=== PATIENT | female | born 2000 | race Caucasian/White ===

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

== ENCOUNTER 2021-01-09 11:12 | Emergency (ER) | payer BC ==
[2021-01-09] MEDS ORDERED: methylPREDNISolone Sodium Succinate 125 MG/2 ML SDV IM ONE (12:39)
--- NOTE | 2021-01-09 12:50 | EDM.PDOC ---
ED HPI GENERAL MEDICAL PROBLEM - General Chief Complaint: Skin Complaint Stated Complaint: HIVES Time Seen by Provider: 01/09/21 12:21 Source of Information: Reports: Patient History Limitations: Reports: No Limitations - History of Present Illness INITIAL COMMENTS - FREE TEXT/NARRATIVE: HISTORY AND PHYSICAL: History of present illness: Patient is a 20-year-old female who presents to the emergency room with complaints of urticaria x2 weeks. She states a week ago she was seen at a walk- in clinic and was prescribed prednisone 20 mg once daily x5 days (completed), and famotidine and hydroxyzine. She states while she was on the prednisone it did help somewhat but rash has returned. She denies any new exposures, medications or contact with anything that would cause hives. Patient does have a history of Graves' disease, takes levothyroxine for several years. She states that she does have concern of her thyroid level being off and would like this rechecked today. She is also questioning whether the hives are related to a separate autoimmune disease. She states her control engineer is in [place], does plan to see them in the next few weeks. Patient denies any fever, chills, headache, change in vision, syncope or near syncope. Denies any chest pain, back pain, shortness of breath or cough. Denies any GI or symptoms. No recent travel or sick contacts. Review of systems: As per history of present illness and below otherwise all systems reviewed and negative. Past medical history: As per history of present illness and as reviewed below otherwise noncontr ibutory. Surgical history: As per history of present illness and as reviewed below otherwise noncontributory. Social history: See social history for further information Family history: As per history of present illness and as reviewed below otherwise noncontributory. Physical exam: General: Well developed and well nourished 20year old female. Alert and orientated x 3. Nontoxic in appearance and in no acute distress. Vital signs are stable and have been reviewed by me. Nursing notes were reviewed. HEENT: Atraumatic, normocephalic, pupils equal and reactive bilaterally, negative for conjunctival pallor or scleral icterus, mucous membranes moist, TMs normal bilaterally, throat clear, neck supple, nontender, trachea midline. No drooling or trismus noted. No meningeal signs. No hot potato voice noted. Lungs: Clear to auscultation bilaterally. No wheezes, rales, or rhonchi. Chest nontender. Normal work of breathing, no accessory muscles used. Heart: S1S2, regular rate and rhythm without overt murmur, gallops, or rubs. No JVD. No peripheral edema Abdomen: Soft, nondistended, nontender. Normoactive bowel sounds. Negative for masses or costovertebral tenderness. Skin: Raised urticaria throughout; spares the face. Skin is intact, warm, dry. No lesions noted. Hematologic: No petechiae or purpra. Mucosa appropriate color and normal nail bed color and refill. Extremities: Atraumatic, moves all extremities per self without difficulty or deficits, negative for cords or calf pain. Neurovascular unremarkable. Neuro: Awake, alert, oriented. Cranial nerves II through XII unremarkable. Cerebellum unremarkable. Motor and sensory unremarkable throughout. Exam nonfocal. Psychiatric: Mood and affect are appropriate. Normal thought process. Answering questions appropriately. Please note that the patient was seen and evaluated during the 2019 SARS-CoV-2 novel coronavirus pandemic period. Community viral transmission is ongoing at time of this encounter and the emergency department is operating under pandemic response procedures. Medical Decision Making: Patient is a 20-year-old female who presents to the emergency room with complaints of your urticaria/hives for 2 weeks. She did have a short course of prednisone and states that did help while she was on it but as soon as she came off of it her rash returned. She voices concern of autoimmune disorder as she has history of Graves' disease. I did educate her that we cannot do formal testing for that due to our limited availability of follow-up and tests. Patient is aware and understanding, does request her thyroid to be checked. Lab work is unremarkable. Her vital signs are stable. I have talked with the patient about today's findings, in addition to providing specific details for plan of care. Reassessment at the time of disposition demonstrates that the patient is in no acute distress. I did give her our dermatology phone number. The patient is stable for discharge, counseling was provided and we discussed in great detail signs and symptoms that would prompt them to return to the Emergency Department. Medication, follow up and supportive care measures were reviewed and discussed. Voices understanding and is agreeable to plan of care. Denies any further questions or concerns at this time. Diagnostics: CBC, CMP, ESR, TSH, T3, T4 Therapeutics: Solu-Medrol Prescription: Prednisone Impression: Urticaria Plan: 1. You were evaluated today on an emergent basis. Your basic lab work which includes a CBC, CMP, ESR, TSH, T3 and T4 are within normal limits. 2. Avoid triggers. Continue to monitor for possible exposures/triggers/foods. While symptomatic continue to routinely take Benadryl 50mg every 4-6 hours and the Famotidine as directed. Start the prednisone tomorrow. 3. You may use topical calamine lotion, cool tempid oatmeal baths, Aveeno bath/lotions. 5. Consider formal allergy testing once you have completed your medications and have improved. You can also consider following up with the control engineer for further investigation if rash should not alleviate. We also have dermatology, Dr. Granado, card has been given to you. 6. Please follow up with your Primary care doctor. Return to the ED as needed and as discussed. Definitive disposition and diagnosis as appropriate pending reevaluation and review of above. BUE/BLE Pain Score (Numeric/FACES): 5 - Related Data Allergies Allergy/AdvReac Type Severity Reaction Status Date / Time adhesive Allergy Rash Verified 11/23/19 13:09 Home Meds: Home Meds FLUoxetine HCl [Fluoxetine HCl] 40 mg PO DAILY 10/01/17 [History] Levothyroxine 137 mcg PO ACBREAKFAST 03/11/19 [History] Venlafaxine [Effexor] 75 mg PO DAILY 01/09/21 [History] hydrOXYzine HCL [hydrOXYzine] 25 mg PO DAILY 01/09/21 [History] norethindrone ac-eth estradioL [Junel 1 mg-20 Mcg Tablet] 1 tab PO DAILY 01/09/21 [History] predniSONE [Prednisone] 40 mg PO DAILY 5 Days #10 tablet 01/09/21 [Rx] Past Medical History HEENT History: Reports: Other (See Below) Other HEENT History: wears contacts/glasses Cardiovascular History: Respiratory History: Reports: None Gastrointestinal History: Reports: None Genitourinary History: Reports: None 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 Neurological History: Reports: None, Other (See Below) (h/o migranes) Psychiatric History: Reports: None Endocrine/Metabolic History: Reports: Other (See Below) Other Endocrine/Metabolic History: Graves Disease, controlled with methimazole Immunologic History: Reports: None Oncologic (Cancer) History: Reports: None Dermatologic History: Reports: None - Infectious Disease History Infectious Disease History: Reports: None - Past Surgical History Head Surgeries/Procedures: Reports: None HEENT Surgical History: Reports: Adenoidectomy, Tonsillectomy Musculoskeletal Surgical History: Reports: None Social & Family History - Family History Family Medical History: No Pertinent Family History - Caffeine Use Caffeine Use: Reports: Soda ED ROS GENERAL - Review of Systems Review Of Systems: Comprehensive ROS is negative, except as noted in HPI. ED EXAM, SKIN/RASH Exam: See Below (See dictation) Course - Vital Signs Last Recorded V/S: Last Vital Signs Temp Pulse 81 01/09/21 13:41 Resp 16 01/09/21 13:41 BP 107/68 01/09/21 13:41 Pulse Ox 100 01/09/21 13:41 - Orders/Labs/Meds Labs: Laboratory Tests 01/09/21 01/09/21 01/09/21 Range/Units 12:38 12:38 12:38 WBC 7.87 (4.0-11.0) K/uL RBC 4.91 (4.30-5.90) M/uL Hgb 14.9 (12.0-16.0) g/dL Hct 43.6 (36.0-46.0) % MCV 88.8 (80.0-98.0) fL MCH 30.3 (27.0-32.0) pg MCHC 34.2 (31.0-37.0) g/dL RDW Std Deviation 43.2 (28.0-62.0) fl RDW Coeff of Tess 13 (11.0-15.0) % Plt Count 278 (150-400) K/uL MPV 9.10 (7.40-12.00) fL Neut % (Auto) 72.0 (48.0-80.0) % Lymph % (Auto) 22.0 (16.0-40.0) % Hamlin % (Auto) 6.0 (0.0-15.0) % Eos % (Auto) 0.0 (0.0-7.0) % Baso % (Auto) 0.0 (0.0-1.5) % Neut # (Auto) 5.7 (1.4-5.7) K/uL Lymph # (Auto) 1.7 (0.6-2.4) K/uL Hamlin # (Auto) 0.5 (0.0-0.8) K/uL Eos # (Auto) 0.0 (0.0-0.7) K/uL Baso # (Auto) 0.0 (0.0-0.1) K/uL Nucleated RBC % 0.0 /100WBC Nucleated RBCs # 0 K/uL ESR 1 (0-19) mm/hr Sodium 143 (136-145) mmol/L Potassium 4.5 (3.5-5.1) mmol/L Chloride 105 (98-107) mmol/L Carbon Dioxide 27.7 (21.0-32.0) mmol/L BUN 10 (7.0-18.0) mg/dL Creatinine 1.0 (0.6-1.0) mg/dL Est Cr Clr Drug Dosing 74.23 mL/min Estimated GFR (MDRD) > 60.0 ml/min Glucose 89 (74-106) mg/dL Calcium 9.0 (8.5-10.1) mg/dL Total Bilirubin 0.4 (0.2-1.0) mg/dL AST 11 L (15-37) IU/L ALT 20 (14-63) IU/L Alkaline Phosphatase 63 (46-116) U/L Total Protein 7.1 (6.4-8.2) g/dL Albumin 3.6 (3.4-5.0) g/dL Globulin 3.5 (2.6-4.0) g/dL Albumin/Globulin Ratio 1.0 (0.9-1.6) Free T4 1.13 (0.76-1.46) ng/dL Free T3 2.52 (2.18-3.98) pg/mL TSH, Ultra Sensitive 0.69 (0.36-3.74) uIU/mL Meds: Medications Discontinued Medications Generic Name Dose Route Start Last Admin Trade Name Freq PRN Reason Stop Dose Admin Methylprednisolone Sodium Succinate 125 mg 01/09/21 12:39 01/09/21 12:53 Methylprednisolone Sodium Succinate 125 Mg/2 Ml Sdv IM 01/09/21 12:40 125 mg ONETIME ONE Administration Departure - Departure Time of Disposition: 13:26 Disposition: Home, Self-Care 01 Clinical Impression: Urticaria - Discharge Information Prescriptions: predniSONE [Prednisone] 40 mg PO DAILY 5 Days #10 tablet Instructions: Hives Referrals: PCP,None [Primary Care Provider] - Forms: ED Department Discharge Additional Instructions: The following information is given to patients seen in the emergency department who are being discharged to home. This information is to outline your options for follow-up care. We provide all patients seen in our emergency department with a follow-up referral. The need for follow-up, as well as the timing and circumstances, are variable depending upon the specifics of your emergency department visit. If you don't have a primary care physician on staff, we will provide you with a referral. We always advise you to contact your personal physician following an emergency department visit to inform them of the circumstance of the visit and for follow-up with them and/or the need for any referrals to a consulting specialist. The emergency department will also refer you to a specialist when appropriate. This referral assures that you have the opportunity for follow-up care with a specialist. All of these measure are taken in an effort to provide you with optimal care, which includes your follow-up. Under all circumstances we always encourage you to contact your private physician who remains a resource for coordinating your care. When calling for follow-up care, please make the office aware that this follow-up is from your recent emergency room visit. If for any reason you are refused follow-up, please contact the [facility] Emergency Department at and asked to speak to the emergency department charge nurse. [facility] [address] [place] [id number] [address] [address] you for choosing the [facility] emergency department in [place] for your medical needs today. It was a pleasure caring for you. Today you were seen in the emergency department for hives. Your prescription was electronically sent to: [place] pharmacy 1. You were evaluated today on an emergent basis. Your basic lab work which includes a CBC, CMP, ESR, TSH, T3 and T4 are within normal limits. 2. Avoid triggers. Continue to monitor for possible exposures/triggers/foods. While symptomatic continue to routinely take Benadryl 50mg every 4-6 hours and the Famotidine as directed. Start the prednisone tomorrow. 3. You may use topical calamine lotion, cool tempid oatmeal baths, Aveeno bath/lotions. 5. Consider formal allergy testing once you have completed your medications and have improved. You can also consider following up with the control engineer for further investigation if rash should not alleviate. We also have dermatology, Dr. Granado, card has been given to you. 6. Please follow up with your Primary care doctor. Return to the ED as needed and as discussed. Sepsis Event Note (ED) - Focused Exam Vital Signs: Vital Signs Pulse Resp BP Pulse Ox 01/09/21 13:41 81 16 107/68 100 01/09/21 12:46 90 111/81 99 01/09/21 12:33 90 111/81 99
[2021-01-09 13:19] LABS: BLOOD UREA NITROGEN,BUN 10 mg/dL (7.0-18.0); CARBON DIOXIDE,CO2 27.7 mmol/L (21.0-32.0); CHLORIDE,CL 105 mmol/L (98-107); GLUCOSE RANDOM 89 mg/dL (74-106); POTASSIUM,K 4.5 mmol/L (3.5-5.1); SODIUM,NA 143 mmol/L (136-145)
[2021-01-09 13:42] VITALS: BP 107/68; PULSE 81
== END 2021-01-09 13:43 | disposition home or self-care (01) ==
LOC: MW.ED 11:12
DX: L50.9 Urticaria, unspecified (principal); E05.00 Thyrotoxicosis with diffuse goiter without thyrotoxic crisis or storm; Z91.048 Other nonmedicinal substance allergy status; Z79.899 Other long term (current) drug therapy
CPT/HCPCS: 36415; 80053; 84439; 84443; 84481; 85025; 85652; 96372; 99283; J2930

== ENCOUNTER 2021-02-11 04:46 | Emergency (ER) | payer BC ==
[2021-02-11 05:25] VITALS: BP 101/81; PULSE 100
[2021-02-11] MEDS ORDERED: predniSONE 10 MG Tab PO ONE (05:34)
[2021-02-11] MEDS ORDERED: diphenhydrAMINE 50 MG/ML SDV IM ONE (05:34)
--- NOTE | 2021-02-11 05:37 | EDM.PDOC ---
ED HPI GENERAL MEDICAL PROBLEM - General Chief Complaint: General Stated Complaint: ALLERGIC REACTION- HIVES ALL OVER BODY Time Seen by Provider: 02/11/21 05:34 - History of Present Illness INITIAL COMMENTS - FREE TEXT/NARRATIVE: HISTORY AND PHYSICAL: History of present illness: This is a 20-year-old female with history significant for hives of unclear etiology who has allergy testing scheduled for February 15 who presents ER today secondary to diffuse hives and itching and is requesting information regarding what medications she can take that would not interfere with her allergy testing. Patient reports that she was told that she is allowed to take prednisone by her barley steeper. She was told to stop [place] and Zyrtec. Patient denies any recent fevers, shakes, chills, nausea, vomiting, diarrhea, abdominal pain, shortness of breath or wheezing. Patient is not have any new allergens that she is aware of. Review of systems: As per history of present illness and below otherwise all systems reviewed and negative. Past medical history: As per history of present illness and as reviewed below otherwise noncontributory. Surgical history: As per history of present illness and as reviewed below otherwise noncont ributory. Social history: No reported history of drug abuse. Family history: As per history of present illness and as reviewed below otherwise noncontributory. Physical exam: This patient was seen and evaluated during the 2019 SARS-CoV-2 novel coronavirus pandemic period. Community viral transmission is ongoing at time of this encounter and the emergency department is operating under pandemic response procedures. Constitutional: Patient is oriented to person, place, and time. Appears well- developed and well-nourished. No distress. HEENT: Moist mucous membranes Head: Normocephalic and atraumatic Eyes: Right eye exhibits no discharge. Left eye exhibits no discharge. No scleral icterus Neck: Normal range of motion. No tracheal deviation present. Cardiovascular: Normal rate and regular rhythm. Pulmonary: Effort normal, no respiratory distress. Abdominal: No distention Musculoskeletal: Normal range of motion Neurologic: Alert and oriented to person, place and time. Skin: Hodgkins, warm and dry. Psychiatric: Normal mood and affect. Behavior is normal. Judgment and thought content normal. Nursing note and vital signs have been reviewed Patient's ER physical exam is significant for diffuse hives throughout her skin. Diagnostics: [] Therapeutics: [] Assessment and plan: 20-year-old who presents ER today with hives of unclear etiology. Patient already has allergy testing scheduled for the . Patient was given a dose of prednisone 50 mg p.o. in the ED and will be also given Benadryl 50 mg IM and will be discharged home with a prescription for prednisone and Benadryl. Patient is instructed to call her barley steeper in the morning for further instructions regarding medications that she can take. Reassessment at the time of disposition demonstrates that the patient is in no acute distress. The patient has remained stable throughout the entire ED visit and is without objective evidence for acute process requiring urgent intervention or hospitalization. The patient is stable for discharge, counseling is provided as documented above, discussed symptomatic treatment and specific conditions for return. I have spoken with the patient/caregiver and discussed todays findings, in addition to providing specific details for the plan of care. Questions are answered and there is agreement with the plan. Definitive disposition and diagnosis as appropriate pending reevaluation and review of above. - Related Data Allergies Allergy/AdvReac Type Severity Reaction Status Date / Time adhesive Allergy Rash Verified 02/11/21 05:22 Home Meds: Home Meds FLUoxetine HCl [Fluoxetine HCl] 40 mg PO DAILY 10/01/17 [History] Levothyroxine 137 mcg PO ACBREAKFAST 03/11/19 [History] Venlafaxine [Effexor] 75 mg PO DAILY 01/09/21 [History] hydrOXYzine HCL [hydrOXYzine] 25 mg PO DAILY 01/09/21 [History] norethindrone ac-eth estradioL [Junel 1 mg-20 Mcg Tablet] 1 tab PO DAILY 01/09/21 [History] predniSONE [Prednisone] 40 mg PO DAILY 5 Days #10 tablet 01/09/21 [Rx] Past Medical History HEENT History: Reports: Other (See Below) Other HEENT History: wears contacts/glasses Cardiovascular History: Respiratory History: Reports: None Gastrointestinal History: Reports: None Genitourinary History: Reports: None 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 Neurological History: Reports: None, Other (See Below) Psychiatric History: Reports: None Endocrine/Metabolic History: Reports: Other (See Below) Other Endocrine/Metabolic History: Graves Disease, controlled with methimazole Immunologic History: Reports: None Oncologic (Cancer) History: Reports: None Dermatologic History: Reports: None - Infectious Disease History Infectious Disease History: Reports: None - Past Surgical History Head Surgeries/Procedures: Reports: None HEENT Surgical History: Reports: Adenoidectomy, Tonsillectomy GI Surgical History: Reports: None Endocrine Surgical History: Reports: Other (See Below) Other Endocrine Surgeries/Procedures: thyroid ablation Musculoskeletal Surgical History: Reports: None Social & Family History - Family History Family Medical History: No Pertinent Family History - Tobacco Use Tobacco Use Status *Q: Never Tobacco User - Caffeine Use Caffeine Use: Reports: Soda - Recreational Drug Use Recreational Drug Use: No ED ROS GENERAL - Review of Systems Review Of Systems: See Below ED EXAM, GENERAL - Physical Exam Exam: See Below Course - Vital Signs Last Recorded V/S: Last Vital Signs Temp 97.2 F 02/11/21 05:22 Pulse 100 02/11/21 05:22 Resp 18 02/11/21 05:22 BP 101/81 02/11/21 05:22 Pulse Ox 98 02/11/21 05:22 - Orders/Labs/Meds Orders: Active Orders 24 hr Category Date Time Status diphenhydrAMINE [Benadryl] Med 02/11/21 05:34 Once 50 mg IM ONETIME ONE predniSONE Med 02/11/21 05:34 Once 50 mg PO ONETIME ONE Departure - Departure Time of Disposition: 05:36 Disposition: Home, Self-Care 01 Condition: Good Clinical Impression: Hives - Discharge Information Instructions: Hives Referrals: Rosario RDZ [Primary Care Provider] - Additional Instructions: The etiology of your rash is unclear. Please keep your appointment on the 23rd for your allergy testing. You are given a dose of prednisone 50 mg in the ED as well as Benadryl 50 mg IM. You will be discharged with a prescription for prednisone 50 mg daily and Benadryl 50 mg every 6 hours as needed for itching. Please call your barley steeper in the morning for further instructions regarding your hives and treatment. Please return the ED if you start developing any shortness of breath or wheezing. The following information is given to patients seen in the emergency department who are being discharged to home. This information is to outline your options for follow-up care. We provide all patients seen in our emergency department with a follow-up referral. The need for follow-up, as well as the timing and circumstances, are variable depending upon the specifics of your emergency department visit. If you don't have a primary care physician on staff, we will provide you with a referral. We always advise you to contact your personal physician following an emergency department visit to inform them of the circumstance of the visit and for follow-up with them and/or the need for any referrals to a consulting specialist. The emergency department will also refer you to a specialist when appropriate. This referral assures that you have the opportunity for follow-up care with a specialist. All of these measure are taken in an effort to provide you with optimal care, which includes your follow-up. Under all circumstances we always encourage you to contact your private physician who remains a resource for coordinating your care. When calling for follow-up care, please make the office aware that this follow-up is from your recent emergency room visit. If for any reason you are refused follow-up, please contact the [facility] Emergency Department at and asked to speak to the emergency department charge nurse. [facility] [address] [place] [id number] [facility] [address] [place] [id number] Sepsis Event Note (ED) - Focused Exam Vital Signs: Vital Signs Temp Pulse Resp BP Pulse Ox 02/11/21 05:22 97.2 F 100 18 101/81 98 - My Orders Last 24 Hours: My Active Orders 02/11/21 05:34 diphenhydrAMINE [Benadryl] 50 mg IM ONETIME ONE predniSONE 50 mg PO ONETIME ONE - Assessment/Plan Last 24 Hours: My Active Orders 02/11/21 05:34 diphenhydrAMINE [Benadryl] 50 mg IM ONETIME ONE predniSONE 50 mg PO ONETIME ONE
== END 2021-02-11 05:54 | disposition home or self-care (01) ==
LOC: MW.ED 04:46
DX: L50.9 Urticaria, unspecified (principal); Z91.048 Other nonmedicinal substance allergy status; Z79.899 Other long term (current) drug therapy
CPT/HCPCS: 99283; A9270

== ENCOUNTER 2021-02-11 21:41 | Emergency (ER) | payer BC ==
[2021-02-11] MEDS ORDERED: Dexamethasone 10 MG/ML SDV IVPUSH ONE (21:52)
[2021-02-11] MEDS ORDERED: Famotidine 20 MG/2 ML SDV IVPUSH ONE (21:52)
[2021-02-11] MEDS ORDERED: diphenhydrAMINE 50 MG/ML SDV IVPUSH ONE (21:52)
[2021-02-11] MEDS ORDERED: Sodium Chloride 0.9% 2.5 ML Syringe FLUSH PRN (21:52)
[2021-02-11] MEDS ORDERED: Sodium Chloride 0.9% 10 ML Syringe FLUSH PRN (21:52)
--- NOTE | 2021-02-11 23:02 | EDM.PDOC ---
ED HPI GENERAL MEDICAL PROBLEM - General Chief Complaint: Allergic Reaction Stated Complaint: HIVES, THROAT CLOSING, DIFFICULTY BREATHING Time Seen by Provider: 02/11/21 21:48 - History of Present Illness INITIAL COMMENTS - FREE TEXT/NARRATIVE: HISTORY AND PHYSICAL: History of present illness: This is a 20-year-old female with a history significant for hives and allergies that started several weeks ago with unclear etiology. Patient reports that she has an appointment to see an dairy manager next week. Patient was seen by me yesterday secondary to recurrence of her hives. Patient reports that she has been taking medication that were stopped on Sunday secondary to her upcoming allergy testing. When she presented to the ED yesterday she wanted medication that she can take to help with her recurrence of her hives that would not interfere with her allergy testing. Benadryl and prednisone were ordered for her however patient declined taking the Benadryl secondary to concerns that this might interfere with her allergy testing. Patient returns ER today secondary to worsening symptoms of her hives and inability to tolerate the itching and wanting medication despite the upcoming allergy testing. Patient reports that prior to 6 weeks ago she did not have any of these problems. Patient denies any recent Covid infections. Patient has any recent fevers, shakes, chills, nausea, vomiting, diarrhea, dysuria, frequency or urgency. Patient denies any shortness of breath to me or wheezing. Although reported in nursing notes, patient denies any swelling to her tongue or throat. Patient has any abdominal pain or di arrhea. Review of systems: As per history of present illness and below otherwise all systems reviewed and negative. Past medical history: As per history of present illness and as reviewed below otherwise noncontributory. Surgical history: As per history of present illness and as reviewed below otherwise noncontributory. Social history: No reported history of drug abuse. Family history: As per history of present illness and as reviewed below otherwise noncontributory. Physical exam: This patient was seen and evaluated during the 2019 SARS-CoV-2 novel coronavirus pandemic period. Community viral transmission is ongoing at time of this encounter and the emergency department is operating under pandemic response procedures. Constitutional: Patient is oriented to person, place, and time. Appears well- developed and well-nourished. No distress. HEENT: Moist mucous membranes Head: Normocephalic and atraumatic Eyes: Right eye exhibits no discharge. Left eye exhibits no discharge. No scleral icterus Neck: Normal range of motion. No tracheal deviation present. Cardiovascular: Normal rate and regular rhythm. Pulmonary: Effort normal, no respiratory distress. Abdominal: No distention Musculoskeletal: Normal range of motion Neurologic: Alert and oriented to person, place and time. Skin: Wallace, warm and dry. Psychiatric: Normal mood and affect. Behavior is normal. Judgment and thought content normal. Nursing note and vital signs have been reviewed Patient's ER physical exam is significant for a multitude of hives throughout her entire body that has gotten much worse since yesterday. Patient has no stridor. Patient has no angioedema. Patient has no tongue swelling or uvular edema. Patient has no wheezing or other respiratory symptoms. Patient appears to be extremely uncomfortable secondary to diffuse welts and hives throughout her body. Diagnostics: [] Therapeutics: Benadryl 50 mg IV, Pepcid 20 mg IV, Decadron 10 mg IV Assessment and plan: 20-year-old female who presents ER today secondary to hives of unclear etiology who is currently in the process of being evaluated by an dairy manager. Patient has allergy testing on however patient reports she is unable to tolerate the itching anymore since she stopped her allergy medications per her dairy manager's request prior to her testing. Patient presents ER today requesting further assistance with her hives and itching as she is unable to tolerate it at this time. On the ER the patient was given Benadryl, Pepcid, Decadron with significant improvement in her symptoms. Patient was monitored in the ED. Patient has no symptoms of airway compromise. Patient be discharged home with a prescription for Benadryl, Pepcid and she ready has a prescription that I sent for her yesterday for prednisone. Patient was instructed to return to the ED if she develops any new or concerning symptoms. Patient reevaluation of her oropharynx reveals no evidence of developing angioedema, tongue swelling or uvular edema. Patient's rash has significantly resolved almost completely. Definitive disposition and diagnosis as appropriate pending reevaluation and review of above. - Related Data Allergies Allergy/AdvReac Type Severity Reaction Status Date / Time adhesive Allergy Rash Verified 02/11/21 21:51 Home Meds: Home Meds FLUoxetine HCl [Fluoxetine HCl] 40 mg PO DAILY 10/01/17 [History] Levothyroxine 137 mcg PO ACBREAKFAST 03/11/19 [History] Venlafaxine [Effexor] 75 mg PO DAILY 01/09/21 [History] hydrOXYzine HCL [hydrOXYzine] 25 mg PO DAILY 01/09/21 [History] norethindrone ac-eth estradioL [Junel 1 mg-20 Mcg Tablet] 1 tab PO DAILY 01/09/21 [History] predniSONE [Prednisone] 40 mg PO DAILY 5 Days #10 tablet 01/09/21 [Rx] Famotidine [Pepcid] 20 mg PO BID #20 tab 02/11/21 [Rx] diphenhydrAMINE [Benadryl] 50 mg PO Q6HR PRN #20 cap 02/11/21 [Rx] diphenhydrAMINE [Benadryl] 50 mg PO Q6HR PRN #20 cap 02/11/21 [Rx] predniSONE [Prednisone] 50 mg PO DAILY #5 tablet 02/11/21 [Rx] Past Medical History HEENT History: Reports: Other (See Below) Other HEENT History: wears contacts/glasses Cardiovascular History: Reports: None Respiratory History: Reports: None Gastrointestinal History: Reports: None Genitourinary History: Reports: None ELECTRICAL SUBCONTRACTOR History: Reports: None Musculoskeletal History: Reports: None Neurological History: Reports: None, Other (See Below) Psychiatric History: Reports: None Endocrine/Metabolic History: Reports: Other (See Below) Other Endocrine/Metabolic History: Graves Disease 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 Hematologic History: Reports: None Immunologic History: Reports: None Oncologic (Cancer) History: Reports: None Dermatologic History: Reports: None - Infectious Disease History Infectious Disease History: Reports: None - Past Surgical History Head Surgeries/Procedures: Reports: None HEENT Surgical History: Reports: Adenoidectomy, Tonsillectomy GI Surgical History: Reports: None Endocrine Surgical History: Reports: Other (See Below) Other Endocrine Surgeries/Procedures: thyroid ablation Musculoskeletal Surgical History: Reports: None Social & Family History - Family History Family Medical History: No Pertinent Family History - Caffeine Use Caffeine Use: Reports: Coffee, Energy Drinks, Soda, Tea - Recreational Drug Use Recreational Drug Use: No ED ROS ALLERGIC REACTION - Review of Systems Review Of Systems: See Below ED EXAM GENERAL NO PERIP PULSE - Physical Exam Exam: See Below Course - Vital Signs Last Recorded V/S: Last Vital Signs Temp 99 F 02/11/21 21:45 Pulse 104 H 02/11/21 22:30 Resp 18 02/11/21 22:30 BP 105/73 02/11/21 22:30 Pulse Ox 97 02/11/21 22:30 - Orders/Labs/Meds Orders: Active Orders 24 hr Category Date Time Status Sodium Chloride 0.9% [Saline Flush] Med 02/11/21 21:52 Active 10 ml FLUSH ASDIRECTED PRN Sodium Chloride 0.9% [Saline Flush] Med 02/11/21 21:52 Active 2.5 ml FLUSH ASDIRECTED PRN Saline Lock Insert [OM.PC] Stat Oth 02/11/21 21:52 Ordered Medication Orders Sodium Chloride (Sodium Chloride 0.9% 10 Ml Syringe) 10 ml FLUSH ASDIRECTED PRN PRN Reason: Keep Vein Open Last Admin: 02/11/21 22:08 Dose: 10 ml Documented by: KEVIN Sodium Chloride (Sodium Chloride 0.9% 2.5 Ml Syringe) 2.5 ml FLUSH ASDIRECTED PRN PRN Reason: Keep Vein Open Last Admin: 02/11/21 22:08 Dose: 2.5 ml Documented by: EKVIN Meds: Medications Generic Name Dose Route Start Last Admin Trade Name Freq PRN Reason Stop Dose Admin Sodium Chloride 10 ml 02/11/21 21:52 02/11/21 22:08 Sodium Chloride 0.9% 10 Ml Syringe FLUSH 10 ml ASDIRECTED PRN Administration Keep Vein Open Sodium Chloride 2.5 ml 02/11/21 21:52 02/11/21 22:08 Sodium Chloride 0.9% 2.5 Ml Syringe FLUSH 2.5 ml ASDIRECTED PRN Administration Keep Vein Open Discontinued Medications Generic Name Dose Route Start Last Admin Trade Name Freq PRN Reason Stop Dose Admin Dexamethasone 10 mg 02/11/21 21:52 02/11/21 22:07 Dexamethasone 10 Mg/Ml Sdv IVPUSH 02/11/21 21:53 10 mg ONETIME ONE Administration Diphenhydramine HCl 50 mg 02/11/21 21:52 02/11/21 22:07 Diphenhydramine 50 Mg/Ml Sdv IVPUSH 02/11/21 21:53 50 mg ONETIME ONE Administration Famotidine 20 mg 02/11/21 21:52 02/11/21 22:07 Famotidine 20 Mg/2 Ml Sdv IVPUSH 02/11/21 21:53 20 mg ONETIME ONE Administration Departure - Departure Time of Disposition: 23:00 Disposition: Home, Self-Care 01 Condition: Good Clinical Impression: Allergic reaction, Hives - Discharge Information Instructions: Hives Referrals: PCP,None [Primary Care Provider] - Additional Instructions: Your seen and evaluated in ER today secondary to diffuse hives of unclear etiology. We have called in a prescription for Benadryl, Pepcid for you please take the prednisone as well that was prescribed for yesterday. Please call your dairy manager as soon as you can get further recommendations regarding her allergy testing. Please return to the ER if develop any new or concerning symptoms such as shortness of breath, wheezing, swelling in your throat. The following information is given to patients seen in the emergency department who are being discharged to home. This information is to outline your options for follow-up care. We provide all patients seen in our emergency department with a follow-up referral. The need for follow-up, as well as the timing and circumstances, are variable depending upon the specifics of your emergency department visit. If you don't have a primary care physician on staff, we will provide you with a referral. We always advise you to contact your personal physician following an emergency department visit to inform them of the circumstance of the visit and for follow-up with them and/or the need for any referrals to a consulting specialist. The emergency department will also refer you to a specialist when appropriate. This referral assures that you have the opportunity for follow-up care with a specialist. All of these measure are taken in an effort to provide you with optimal care, which includes your follow-up. Under all circumstances we always encourage you to contact your private physician who remains a resource for coordinating your care. When calling for follow-up care, please make the office aware that this follow-up is from your recent emergency room visit. If for any reason you are refused follow-up, please contact the [facility] Emergency Department at and asked to speak to the emergency department charge nurse. [facility] - [facility] [address] [place] [id number] [facility] [address] [place] [id number] Sepsis Event Note (ED) - Evaluation Sepsis Screening Result: No Definite Risk - Focused Exam Vital Signs: Vital Signs Temp Pulse Resp BP Pulse Ox 02/11/21 22:30 104 H 18 105/73 97 02/11/21 21:45 99 F 116 H 18 120/85 99 - My Orders Last 24 Hours: My Active Orders 02/11/21 21:52 Sodium Chloride 0.9% [Saline Flush] 10 ml FLUSH ASDIRECTED PRN Sodium Chloride 0.9% [Saline Flush] 2.5 ml FLUSH ASDIRECTED PRN Saline Lock Insert [OM.PC] Stat - Assessment/Plan Last 24 Hours: My Active Orders 02/11/21 21:52 Sodium Chloride 0.9% [Saline Flush] 10 ml FLUSH ASDIRECTED PRN Sodium Chloride 0.9% [Saline Flush] 2.5 ml FLUSH ASDIRECTED PRN Saline Lock Insert [OM.PC] Stat
[2021-02-11 23:17] VITALS: BP 110/76; PULSE 103
== END 2021-02-11 23:18 | disposition home or self-care (01) ==
LOC: MW.ED 21:41
DX: T78.40XA Allergy, unspecified, initial encounter (principal); Z91.048 Other nonmedicinal substance allergy status; Z79.899 Other long term (current) drug therapy
CPT/HCPCS: 96374; 96375; 99283; J1100; J1200; J3490

== ENCOUNTER 2021-07-01 21:57 | Emergency (ER) | payer BC ==
[2021-07-01] MEDS ORDERED: Metoclopramide 10 MG/2 ML SDV IVPUSH ONE (22:17)
[2021-07-01] MEDS ORDERED: Sodium Chloride 0.9% 1,000 ML IV ONE (22:17)
[2021-07-01 23:17] LABS: BLOOD UREA NITROGEN,BUN 14 mg/dL (7.0-18.0); CARBON DIOXIDE,CO2 27.3 mmol/L (21.0-32.0); CHLORIDE,CL 101 mmol/L (98-107); GLUCOSE RANDOM 104 mg/dL (74-106); LIPASE 44 U/L (73-393); POTASSIUM,K 4.6 mmol/L (3.5-5.1); SODIUM,NA 138 mmol/L (136-145)
[2021-07-01 23:54] VITALS: BP 102/57; PULSE 79
== END 2021-07-01 23:50 | disposition home or self-care (01) ==
LOC: MW.ED 21:57
DX: K29.70 Gastritis, unspecified, without bleeding (principal); R11.10 Vomiting, unspecified; Z91.048 Other nonmedicinal substance allergy status; Z79.899 Other long term (current) drug therapy
CPT/HCPCS: 36415; 80053; 81003; 81025; 83690; 85025; 96374; 99284; J2765; J7030; 99283

== ENCOUNTER 2021-12-25 19:29 | Observation (INO) | payer BC ==
[2021-12-25] MEDS ORDERED: Sodium Chloride 0.9% 1,000 ML IV ONE (20:29)
[2021-12-25] MEDS ORDERED: Iopamidol 755 Mg/ML 100 ML Bottle IV ONE (20:29)
[2021-12-25] MEDS ORDERED: Ondansetron 4 MG/2 ML SDV IVPUSH ONE (20:29)
[2021-12-25] MEDS ORDERED: Morphine 4 MG/ML Syringe IVPUSH ONE (20:29)
[2021-12-25 20:37] LABS: POTASSIUM,K 4.1 mmol/L (3.5-5.1)
[2021-12-25] MEDS ORDERED: Ketorolac 30 MG/ML SDV IVPUSH ONE (21:38)
[2021-12-25] MEDS ORDERED: Iopamidol 755 Mg/ML 100 ML Bottle IVPUSH ONE (22:25)
[2021-12-25] MEDS ORDERED: Piperacillin/Tazobactam 3.375 GM in Sodium Chloride 0.9% 50 ML IV STA (22:53)
[2021-12-25] MEDS ORDERED: Lactated Ringers 1,000 ML IV STA (22:54)
[2021-12-25] MEDS ORDERED: Morphine 2 MG/ML SYRINGE IVPUSH PRN (22:56)
[2021-12-26 01:16] VITALS: BP 109/65; PULSE 100
[2021-12-26] MEDS ORDERED: cefOXitin 1 GM in Premix Bag 1 BAG IV SCH (05:00)
[2021-12-26] MEDS ORDERED: Bupivacaine 0.5% 30 ML SDV ONE (10:08)
[2021-12-26] MEDS ORDERED: Propofol 200 MG/20 ML SDV ONE (10:43)
[2021-12-26] MEDS ORDERED: fentaNYL 250 MCG/5 ML SDV ONE (10:43)
[2021-12-26] MEDS ORDERED: Lactated Ringers 1,000 ML IV ONE (11:30)
[2021-12-26] MEDS ORDERED: Ropivacaine 0.5% 5 MG/ML 30 ML SDV ONE (12:13)
[2021-12-26] MEDS ORDERED: Rocuronium Bromide 50 MG/5 ML Syringe ONE ×2 (12:18→13:10)
[2021-12-26] MEDS ORDERED: Ondansetron 4 MG/2 ML SDV ONE (12:18)
[2021-12-26] MEDS ORDERED: Phenylephrine HCl In 0.9% NaCl 1 MG/10 ML Vial ONE (12:18)
[2021-12-26] MEDS ORDERED: Dexamethasone 4 MG/ML 5 ML MDV ONE (12:18)
[2021-12-26] MEDS ORDERED: Ketorolac 30 MG/ML SDV ONE (12:18)
[2021-12-26] MEDS ORDERED: Sugammadex Sodium 200 MG/2 ML VIAL ONE (12:18)
[2021-12-26] MEDS ORDERED: Acetaminophen/HYDROcodone 325-5 MG Tab ONE (16:42)
[2021-12-27] MEDS ORDERED: Acetaminophen/HYDROcodone 325-5 MG Tab ONE ×2 (05:49→12:48)
== END 2021-12-27 12:45 | disposition home or self-care (01) ==
LOC: MW.ED 19:29 → MW.MS 22:57 → MW.ZCENSUS 12-26 13:53
PROVIDERS: ADMIT Surgery; ATTEND Surgery
DX: K35.20 Acute appendicitis with generalized peritonitis, without abscess (principal); K66.0 Peritoneal adhesions (postprocedural) (postinfection); D72.829 Elevated white blood cell count, unspecified; Z90.09 Acquired absence of other part of head and neck; Z98.890 Other specified postprocedural states; Z20.822 Contact with and (suspected) exposure to COVID-19
CPT/HCPCS: 36415; 44970; 74177; 80053; 81003; 83690; 84703; 85025; 87040; 87635; A9270; J0131; J0694; J1100; J1885; J2270; J2405; J2543; J2704; J2795; J3010; J3490; J7030; J7120; Q9967; 99284; U0002

== ENCOUNTER 2023-11-06 08:35 | Day surgery (SDC) | payer BC ==
[~2023-11-06 08:35] MED LIST changes: -Acetaminophen/HYDROcodone 325-5 MG Tab PO PRN; -Bupivacaine 0.25%/EPINEPHrine 1:200,000 10 ML SDV INJECT ONE; -Bupivacaine 0.25%/EPINEPHrine 1:200,000 10 ML SDV ONE; +Bupivacaine 0.5% 30 ML SDV ONE; +Dexamethasone 4 MG/ML 5 ML MDV ONE; +Famotidine 20 MG/2 ML SDV ONE; -Lactated Ringers 1,000 ML IV SCH; +Morphine 10 MG/ML SDV ONE; +Ondansetron 4 MG/2 ML SDV ONE; +Propofol 200 MG/20 ML SDV ONE; +Rocuronium Bromide 50 MG/5 ML Syringe ONE; +Ropivacaine 0.5% 5 MG/ML 30 ML SDV ONE; +Sodium Chloride 0.9% 10 ML Syringe FLUSH PRN; +Sodium Chloride 0.9% 2.5 ML Syringe FLUSH PRN; +Sodium Chloride 0.9% 20 ML SDV IV PRN; +Sugammadex Sodium 200 MG/2 ML VIAL IV ONE; -ceFAZolin 2 GM in Premix Bag 1 BAG IV ONE; +ceFAZolin 2 GM in Sodium Chloride 0.9% 50 ML IV ONE; +dexmedeTOMIDine HCl 200 MCG/2 ML SDV ONE; +fentaNYL 250 MCG/5 ML SDV ONE; +propofoL 50 ML ONE
[2023-11-06] MEDS ORDERED: Ketorolac 30 MG/ML SDV IVPUSH ONE (08:36)
[2023-11-06] MEDS: Lactated Ringers 1,000 ML IV SCH (08:54)
[2023-11-06] MEDS ORDERED: Lidocaine 2% 11 ML Jelly Filled Syringe ONE (09:59)
[2023-11-06] MEDS ORDERED: ceFAZolin 2 GM Vial ONE (10:16)
[2023-11-06] MEDS ORDERED: Indocyanine Green 25 MG SDV ONE (10:16)
[2023-11-06] MEDS ORDERED: Water For Injection, Sterile 20 ML ONE (10:16)
[2023-11-06] MEDS ORDERED: fentaNYL 100 MCG/2 ML SDV ONE (10:29)
[2023-11-06] MEDS ORDERED: Propofol 200 MG/20 ML SDV ONE (10:54)
[2023-11-06] MEDS ORDERED: HYDROmorphone 2 MG/ML Syringe ONE (11:09)
[2023-11-06 14:33] VITALS: BP 102/60; PULSE 87
== END 2023-11-06 14:03 | disposition home or self-care (01) ==
LOC: MW.SDS 08:35
PROVIDERS: ATTEND Surgery
DX: K80.10 Calculus of gallbladder with chronic cholecystitis without obstruction (principal); E03.9 Hypothyroidism, unspecified; Z98.890 Other specified postprocedural states; Z79.890 Hormone replacement therapy; Z79.899 Other long term (current) drug therapy; Z91.048 Other nonmedicinal substance allergy status
CPT/HCPCS: 36415; 47562; 84703; A9270; J0131; J0665; J0690; J1100; J1170; J1885; J2270; J2405; J2704; J2795; J3010; J3490; J7120